=== PATIENT | male | born 1945 | race Caucasian/White ===

== ENCOUNTER 2018-11-02 16:26 | Inpatient (IN) | payer MEDICARE, OTHER ==
[~2018-11-02] VITALS: Ht 170.2 cm; Wt 70.3 kg
--- NOTE | ~2018-11-02 | CON ---
[address] [address] CONSULTATION Name: Leah BARNARD Room: [address] IN .R.#: [id number] Admission: 11/02/18 Attend Phys: Maribell Gordillo MD Discharge: Date of : 49 Report #: [id number] THIS REPORT FOR: //name// CC: Maribell Riddle INPATIENT CONSULTATION CHIEF COMPLAINT: Shortness of breath. HISTORY OF PRESENT ILLNESS: The patient is a 73-year-old male with a history of severe obstructive lung disease. He was evaluated with a routine echocardiogram today, which demonstrated a valvular heart disease. He has known about a murmur for approximately 5-10 years based on other previous physical examinations by his primary doctor. He in fact had a treadmill stress test about 3-4 years ago, which was reportedly normal, not at this institution. He has a past medical history of chronic obstructive pulmonary disease with frequent exacerbations. He has underlying essential hypertension. He has no documented history of heart disease, and he denies congestive heart failure exacerbations, prior [place], stroke or mini strokes. HOME MEDICATIONS: Include loratadine 10 mg daily, lisinopril 20 mg daily, albuterol, Atrovent and vitamins. PAST SURGICAL HISTORY: Prior rotator cuff surgery. SOCIAL HISTORY: He is a tobacco user of 1/2 pack per day, 50-year history. He is not actively smoking. REVIEW OF SYSTEMS: GENERAL: No fevers or chills. PULMONARY: Positive shortness of breath, positive cough. CARDIOVASCULAR: No exertional chest pain or pressure. Positive exertional shortness of breath, no palpitation, no orthopnea, no PND. MUSCULOSKELETAL: No edema. SKIN: No rashes. HEMATOLOGIC: No anemia or bleeding disorder. NEUROLOGIC: Denies headaches, blurry vision, slurred speech or numbness. CARDIOVASCULAR: No palpitations, no chest pain. ENDOCRINE: He is not known to have thyroid disease or diabetes mellitus. FAMILY HISTORY: There is no family history of heart disease or early sudden cardiac . LABORATORY DATA: Sodium is 137, potassium is 4.2, chloride is 99, CO2 is 28, [place] [address] CONSULTATION Name: Leah BARNARD Room: [address] IN [facility]#: [id number] Admission: 11/02/18 Attend Phys: Maribell Gordillo MD Discharge: Date of : 49 Report #: [id number] BUN 16, creatinine is 1.3. Troponin I is 0.06. BNP 315. INR is 1.1. Echocardiogram today reveals EF 65%, normal LV segmental wall motion and [id number] aortic stenosis. There is a mean gradient of 15 mmHg, although this may be slightly underestimated based on the patient's somewhat technical limitations because of his obstructive lung disease. ECG shows a sinus rhythm, nonspecific ST-segment abnormality. IMPRESSION: 1. Aortic valve stenosis. This is in the mild to moderate range and the patient although short of breath is not likely having his symptoms related to his valvular heart disease. He has grossly normal left ventricular systolic function. At this point in time, I would continue with routine clinical followup on an annual basis and likely surveillance echocardiogram in 12 months' time unless he has new progressive shortness of breath that cannot be explained by his significant lung disease. 2. Chronic obstructive pulmonary disease exacerbation. He is doing well on current medical therapy. 3. Hypertension. He has done well on current medical therapy. I would not make any changes. By: [id number] Goldstein MD, FACC /nt
[~2018-11-02 16:26] MED LIST: CLARITIN10 MG PO; DUONEB 2.5-0.5 M3 ML INH; LEVAQUIN 500 M500 M2 PO; LISINOPRIL10 MG PO; NOHOMEMEDICATIONS; PREDNISONE 10 M10 M1 PO; UNICOMPLEX M TA1 TA1 PO; VENTOLIN HFA 1818 GM INH
[2018-11-02 16:33] VITALS: BP 189/84
[2018-11-02 16:57] LABS: HEMOGLOBIN 15.3 gm/dL (14.0-18.0); MCH 31.4 pg (26.0-34.0); MCV 92.3 fL (80.0-100.0); MPV 6.8 fl. (7.2-11.1); NUCLEATED RBCS 0 /100WBC; PLATELET COUNT* 228 thou/uL (150-400); RBC 4.88 mil/uL (4.50-6.00); RDW-CV 13.5 % (10.5-14.5); WBC 7.2 thou/uL (4.0-11.0)
[2018-11-02 17:13] LABS: INR 1.1; PROTIME 10.8 Seconds (9.20-11.50)
[2018-11-02 17:20] LABS: NT-PRO BRAIN NAT PEPTIDE 315 pg/mL (<300); TROPONIN-I LEVEL <0.06 ng/mL (<0.06)
[2018-11-02 17:52] LABS: URINE BILIRUBIN NEGATIVE (Negative); URINE BLOOD NEGATIVE (Negative); URINE CLARITY CLEAR; URINE COLOR YELLOW; URINE GLUCOSE-RANDOM NEGATIVE (Negative); URINE KETONES NEGATIVE (Negative); URINE LEUKOCYTES-REFLEX NEGATIVE (Negative); URINE NITRITE-REFLEX NEGATIVE (Negative); URINE PROTEIN NEGATIVE (Negative); URINE UROBILINOGEN 0.2 E.U./dl (0.2-1.0)
[2018-11-02 18:00] LABS: ALBUMIN 3.8 g/dL (3.4-5.0); CALCIUM 9.3 mg/dL (8.5-10.1); CREATININE 1.3 mg/dL (0.6-1.3); POTASSIUM 4.2 mmol/L (3.5-5.1); TOTAL BILIRUBIN 0.5 mg/dL (<0.1-1.0); TOTAL PROTEIN 7.3 g/dL (6.4-8.2)
[2018-11-02 18:03] LABS: ABSOLUTE EOSINOPHILS 0.8 thou/uL (0.0-0.7); ABSOLUTE LYMPHOCYTES 1.2 thou/uL (0.8-5.3); ABSOLUTE MONOCYTES 0.7 thou/uL (0.0-1.2); ABSOLUTE NEUTROPHILS 4.5 thou/uL (1.6-8.1); PLATELET ESTIMATE ADEQUATE
[2018-11-02 20:24] VITALS: BP 151/82
[2018-11-02 21:00] VITALS: BP 178/79
--- NOTE | 2018-11-03 05:39 | NUR ---
PATIENT ARRIVED ON FLOOR ABOUT 2049 FROM ER. PATIENT ADMISSION HISTORY AND ASSESSMENT WAS COMPLETED CHARTED. IV ANTIOBITCS WERE GIVEN CHARTED. PATIENT IS ON OXYGEN AT 2L PER NASAL CANNULA. LUNGS ARE WHEEZY. PATIENT HAD NO COMPLAINTS OF PAIN. WILL CONTINUE TO MONITOR.
[2018-11-03 07:40] VITALS: BP 158/85
--- NOTE | 2018-11-03 13:08 | EKG ---
[place] [address] ELECTROCARDIOGRAM REPORT Name: Leah BARNARD Room: [address] ADM IN R.#: [id number] Admission: 11/02/18 Attend Phys: Maribell Gordillo MD Discharge: Date of : 49 Report #: [id number] THIS REPORT FOR: //name// [facility] ED Test Date: 2018-11-02 Test Time: 16:39:44 Pat Name: Leah BARNARD Department: Room: [facility] Gender: M Head Waitress: : 1945 Requested By: Yola Mcneal Order Number: [id number] MD: Shmuel Vasquez Measurements Intervals [place] Rate: 89 P: 46 [place]: 166 QRS: -25 QRSD: 95 T: 30 QT: 371 QTc: 452 Interpretive Statements Sinus rhythm Borderline left axis deviation Borderline low voltage, extremity leads Compared to ECG 11/23/2015 09:38:04 Myocardial infarct finding no longer present Electronically Signed On 11-03-2018 13:08:37 CDT by Shmuel Vasquez [email or web address] <ELECTRONICALLY SIGNED> By: Shmuel Vasquez MD, [facility] 11/03/18 1308 1639 [id number] Shmuel Vasquez MD, [facility] /EPI
--- NOTE | 2018-11-03 13:18 | 2DMMODE ---
[place] [address] 2 D/M-MODE ECHOCARDIOGRAM Name: Leah BARNARD Room: [address] IN [facility]#: [id number] Admission: 11/02/18 Attend Phys: Maribell Gordillo, Discharge: Date of : 49 Date of Service: 11/03/18 1318 Report #: [id number] THIS REPORT FOR: //name// APPROVED REPORT Study performed: 11/03/2018 10:11:53 EXAM: Comprehensive 2D, Doppler, and color-flow Echocardiogram Patient Location: In-Patient Room #: [facility] Status: routine BSA: 1.81 HR: 92 bpm BP: 158/85 mmHg Rhythm: NSR Other Information Study Quality: Good Indications COPD Dyspnea 2D Dimensions IVSd: 15.20 (7-11mm) LVOT Diam: 21.57 (18-24mm) LVDd: 48.55 mm PWd: 10.91 (7-11mm) Ascending Ao: 42.77 (22-36mm) LVDs: 24.09 (25-40mm) Aortic Root: 38.91 mm Volumes Left Atrial Volume (Systole) LA ESV Index: 20.50 mL/m2 Aortic Valve AoV Peak Dayron.: 2.61 m/s AO Peak Gr.: 27.19 mmHg LVOT Max P.91 mmHg AO Mean Gr.: 14.75 mmHg LVOT Mean P.10 mmHg LVOT Max V: 0.99 m/s AO V2 VTI: 43.44 cm LVOT Mean V: 0.68 m/s JENNIFER (VTI): 1.72 cm2 LVOT V1 VTI: 20.41 cm Mitral Valve E/A Ratio: 0.71 MV Decel. Time: 143.26 [place] [address] 2 D/M-MODE ECHOCARDIOGRAM Name: Leah BARNARD Room: [address] IN [facility].#: [id number] Admission: 11/02/18 Attend Phys: Maribell Gordillo, Discharge: Date of : 49 Date of Service: 11/03/18 1318 Report #: [id number] MV E Max Dayron.: 0.88 m/s MV PHT: 41.55 ms MVA (PHT): 5.30 cm2 TDI E/Lateral E': 9.78 E/Medial E': 8.00 Medial E' Dayron.: 0.11 m/s Lateral E' Dayron.: 0.09 m/s Pulmonary Valve PV Peak Dayron.: 1.32 m/s PV Peak Gr.: 6.97 mmHg Left Ventricle The left ventricle is normal size. There is normal LV segmental wall motion. Mild septal hypertrophy is present. Left ventricular systolic function is normal. The left ventricular ejection fraction is within the normal range. LVEF is 65%. Grade I - abnormal relaxation pattern. Right Ventricle The right ventricle is normal size. The right ventricular systolic function is normal. Atria Left atrium is mildly dilated. The right atrium size is normal. Aortic Valve Moderate aortic valve sclerosis. Mild aortic regurgitation. Mild to moderte aortic stenosis.Mean gradient 15mmhg Mitral Valve The mitral valve is normal in structure. There is no mitral valve regurgitation noted. No evidence of mitral valve stenosis. Tricuspid Valve The tricuspid valve is normal in structure. There is no tricuspid valve regurgitation noted. Pulmonic Valve The pulmonary valve is normal in structure. There is no pulmonic valvular regurgitation. Great Vessels The aortic root is normal in size. IVC is normal in size and collapses >50% [place] [address] 2 D/M-MODE ECHOCARDIOGRAM Name: Leah BARNARD Room: [address]#: [id number] Admission: 11/02/18 Attend Phys: Maribell Gordillo, Discharge: Date of : 49 Date of Service: 11/03/18 1318 Report #: [id number] Pericardium There is no pericardial effusion. <Conclusion> LVEF is 65%. There is normal LV segmental wall motion. Mild to moderate aortic stenosis. Mild septal hypertrophy is present. Grade I - abnormal relaxation pattern. No evidence of mitral valve stenosis. Mild aortic regurgitation. Left atrium is mildly dilated. <ELECTRONICALLY SIGNED> By: Moo Goldstein MD, FACC 11/03/18 1318 17 17 Moo Goldstein MD, FACC /INF
--- NOTE | 2018-11-03 16:04 | NUR ---
PATIENT UP AD LINSEY TO BATHROOM WITHOUT DIFFICULTY NOTED. IV REMAINS SL, SCHED STEROIDS. ABX TO INFUSE AT HS. NO COMPLAINTS OF PAIN. PULM CONS AND SAW PATIENT THIS AFTERNOON, CT ORDERED AND DONE THIS EVENING, RESULTS PENDING. PATIENT REMAINS ON 2L NC.
[2018-11-03 16:41] VITALS: BP 161/77
--- NOTE | 2018-11-03 16:47 | NUR ---
SW met with pt to complete initial assessment, introduce self, and SW role. Pt alert, oriented, pleasant. Pt lives at home with his . Pt does not have oxygen at home and says he hopes he does not need home oxygen. Pt still has nebulizer he received through [employer] in 2016. SW to continue to follow to assist with safe dc planning.
[2018-11-03 21:00] VITALS: BP 121/79
[2018-11-04 03:23] VITALS: BP 133/71
[2018-11-04 03:58] LABS: HEMATOCRIT 41.6 % (42.0-52.0); MCHC 33.5 g/dL (28.0-37.0); MCV 92.5 fL (80.0-100.0); MPV 6.9 fl. (7.2-11.1); RBC 4.5 mil/uL (4.50-6.00); RDW-CV 13.1 % (10.5-14.5); WBC 9.4 thou/uL (4.0-11.0)
[2018-11-04 04:06] LABS: ALBUMIN 3.3 g/dL (3.4-5.0); CALCIUM 9.2 mg/dL (8.5-10.1); MAGNESIUM 2.1 mg/dL (1.8-2.4); POTASSIUM 4.5 mmol/L (3.5-5.1); TOTAL BILIRUBIN 0.3 mg/dL (<0.1-1.0); TOTAL PROTEIN 6.6 g/dL (6.4-8.2)
--- NOTE | 2018-11-04 05:43 | NUR ---
PATIENT SLEPT MOST OF THE NIGHT. IV REMAINS SALINE LOCKED. IV ANTIBIOTICS WERE GIVEN ORDERED. PATIENT HAS REMAINED SR ON THE MONITOR. BP HAS REMAINED 120'S TO 130'S SBP NO HYDRALIZINE WAS NEEDED. PATIENT REMAINS ON OXYGEN AT 2L PER NC. WILL CONTINUE OT MONITOR.
[2018-11-04 07:32] VITALS: BP 167/76
[2018-11-04 12:01] VITALS: BP 127/73
--- NOTE | 2018-11-04 15:28 | NUR ---
ASSESSMENT COMPLETE. PT ALERT AND ORIENTED X4. VASCULAR CONSULT DONE TODAY. IV ZITHRO AND SOLUMEDROL GIVEN SCHEDULED. PT IS ON 2L PER NC. VSS. PT IS UP AD LINSEY. DENIES PAIN AND N/V. SEE ASSESSMENT AND VITALS FOR OTHER DETAILS. CALL LIGHT WITHIN REACH, WILL CONTINUE PLAN OF CARE
[2018-11-04 16:00] VITALS: BP 147/60
[2018-11-04 20:00] VITALS: BP 165/60
[2018-11-04 20:30] VITALS: BP 141/72
[2018-11-05 00:05] VITALS: BP 153/72
[2018-11-05 04:15] VITALS: BP 130/68
--- NOTE | 2018-11-05 04:42 | NUR ---
PT CARE ASSUMED AT 1930. SAT MAINTAINED IN 2L NC. ALERT AND ORIENTED X4. CALL LIGHT WITHIN REACH AND BED IN LOW POSITION. DENIES PAIN. HOURLY ROUNDING DONE FOR PT SAFETY.
[2018-11-05 08:00] VITALS: BP 147/67
[2018-11-05 16:27] VITALS: BP 150/62
--- NOTE | 2018-11-05 17:07 | NUR ---
PT A&Ox4 THROUGHOUT SHIFT. VITALS STABLE. WEANED OFF OF OXYGEN AND REMAINED A 90% OX RATE. UP AD LINSEY. WALKED HALLS MANY TIMES THROUHGOUT SHIFT. FAMILY IN ROOM MOST OF DAY. DENIED PAIN. IV IN L FA HOLDEN BLANCO. CALL LIGHT WITHIN REACH. WILL CONTINUE TO MONITOR.
[2018-11-05 19:27] VITALS: BP 164/79
--- NOTE | 2018-11-06 04:44 | NUR ---
PT REMAINED A&O X4. MEDS GIVEN ORDERED. PT EDUCATED ON MEDS AND VERBALIZED UNDERSTANDING. PT TOLERATED BREATHING TREATMENT, IV ANTIBIOTIC. NO NAUSEA, VOMITING, OR PAIN. PT SLEEPING THROUGH THE NIGHT. HOURLY ROUNDING COMPLETED. WILL CONTINUE TO MONITOR.
[2018-11-06 08:05] VITALS: BP 157/77
--- NOTE | 2018-11-06 16:09 | NUR ---
PATIENT RESTING IN BED. PATIENT DENIES ANY PAIN. PATIENT HAS BEEN ON ROOM AIR THIS AFTERNOON WITH O2 AT STANDBY. PATIENT HAS WALKED IN HALLS INDEPENDENTLY. PATIENT HAS DENIED ANY TROUBLE BREATHING. PATIENT HAS GOOD APPETITE. PATIENT DENIES ANY NEEDS AT THIS TIME. CALL LIGHT WITHIN REACH. WILL CONTINUE TO MONITOR.
[2018-11-06 16:41] VITALS: BP 134/68
[2018-11-06 20:00] VITALS: BP 154/65
[2018-11-07] VITALS (7 sets, daily range): BP systolic 136–168; BP diastolic 64–77
--- NOTE | 2018-11-07 02:58 | NUR ---
ASSUMED CARE OF PATIENT AT 1900. VSS, AFEBRILE. ORDERS FOUND TO HAVE PATIENT ON TELE, TELE MONITOR PLACED BACK ON PATIENT. EDUCATED TO WHY IT WAS ON. DENIES PAIN. IS SOA WITH WITH ACTIVITY, ON ROOM AIR. PROGRESSING TOWARDS POC GOALS.
[2018-11-07 11:10] LABS: ADENOVIRUS Negative (Negative); INFLUENZA A Negative (Negative); INFLUENZA B Negative (Negative); METAPNEUMOVIRUS Negative (Negative); PARAINFLUENZA 1 Negative (Negative); PARAINFLUENZA 2 Negative (Negative); PARAINFLUENZA 3 Negative (Negative); RHINOVIRUS Negative (Negative); RSV A Negative (Negative); RSV B Negative (Negative)
[2018-11-07] MEDS ORDERED: NORVASC10 MG PO (13:34)
[2018-11-07] MEDS ORDERED: PREDNISONE 10 M10 MG PO (13:36)
[2018-11-07] MEDS ORDERED: PROTONIX40 M1 PO (13:41)
--- NOTE | 2018-11-07 14:03 | NUR ---
PATIENT IS ALERT AND ORIENTED TODAY VERY PLEASANT. UP AD LINSEY IN ROOM, VITAL SIGNS STABLE ON ROOM AIR. NO COMPLAINTS OF PAIN TODAY. PATIENT IS BEING DISCHARGRED TO HOME WITH SPOUSE. DISCHARGE INSTRUCTIONS AND PRESCRIPTIOMS GIVEN AND QUESTIONS ANSWERED FOR PATIENT AND FAMILY. LEFT VIA WHEELCHAIR TO HOME WITH .
--- NOTE | 2018-11-07 14:13 | CON ---
[address] [address] CONSULTATION Name: Leah BARNARD Room: [address] IN M.R.#: [id number] Admission: 11/02/18 Attend Phys: Maribell Gordillo MD Discharge: 11/07/18 Date of : 49 Report #: [id number] THIS REPORT FOR: //name// CC: Maribell Riddle DATE OF SERVICE: 11/03/2018 Consult has been requested by Dr. Gordillo. INDICATION FOR CONSULTATION: Shortness of breath. HISTORY OF PRESENT ILLNESS: This is a 73-year-old gentleman. Past medical history does include a history of COPD. The patient follows with Dr. Zuluaga in the office. He is not on supplemental oxygen and not on CPAP or BiPAP at home. Over the last several months, he has had difficulty in controlling his COPD. He has received multiple antibiotics. He has also received at least 2 courses of prednisone. The patient, however, continued to remain short of breath and therefore came to the Emergency Room yesterday. His O2 saturation was 88% on room air on arrival. Note that he previously was not on oxygen. He does have a cough. There is not much sputum. There is no chest pain. He does not have upper respiratory complaints. There is no swelling of lower extremities or calf pain. He does have disturbed sleep at night as well as sleepiness during the day. These complaints are at baseline. I asked him 12 questions for review of systems. The patient answered to the negative for all other questions for review of systems except as mentioned above. PAST MEDICAL HISTORY: COPD, not on CPAP, BiPAP or oxygen long-term. Has had influenza in August 2018. He just had an echocardiogram, which does show moderate aortic stenosis, right rotator cuff surgery, allergic rhinitis. CURRENT MEDICATIONS: List in [employer] reviewed. HOME MEDICATIONS: List also in [employer] reviewed. ALLERGIES: No known drug allergies. SOCIAL HISTORY: Smoker, half to 1 pack a day for 50 years, discontinued 3 or 4 years ago. No known history of heavy alcohol use or illegal drug use. PHYSICAL EXAMINATION: GENERAL: He is alert, awake and oriented. VITAL SIGNS: In the record. These are reviewed, pulse 108, blood pressure 158/85, he is saturating 93%. He is on 2 liters nasal cannula. His respiratory rate is 18. He is afebrile with a temperature of 36.5. [place] [address] CONSULTATION Name: Leah BARNARD Room: [address]#: [id number] Admission: 11/02/18 Attend Phys: Maribell Gordillo MD Discharge: 11/07/18 Date of : 49 Report #: [id number] HEENT: There is no throat erythema. He has a narrow airway around Mallampati 3. NECK: Does not show raised JVP. CHEST: Breath sounds are bilaterally equal, decreased, expirations prolonged. There are expiratory wheezes bilaterally. HEART: Regular. There is a soft systolic murmur. ABDOMEN: Soft and nontender. EXTREMITIES: Lower extremities, no edema, no calf tenderness. He has some varicose veins. LABORATORY DATA: The patient's lab work including CBC as well as chemistries are in [facility]. These are reviewed. Creatinine is mildly elevated to 1.3. Note that his baseline creatinine was 0.9. D-dimer was 0.44. Viral respiratory panel is pending at this time. The patient's chest x-ray from yesterday as well as today are reviewed. There are vague radiopaque densities noted at the left lung base. There are also chronic changes noted. He has a prominent aorta. ASSESSMENT AND PLAN: 1. Acute respiratory insufficiency. Primarily, this appears to be secondary to bronchospasm. Note that there are vague radiopaque densities at the left lung base and therefore a pulmonary infiltrate in this region does need to be ruled out as well. Also, the patient does have aortic stenosis. 2. Chronic obstructive pulmonary disease exacerbation. I feel the primary therapy at this time is with Solu-Medrol. The patient is already ordered Solu-Medrol. I will continue as currently prescribed. We will also continue with nebulized bronchodilators as currently prescribed. My suspicion of thromboembolism is low considering D-dimer is not elevated. For now, we will continue with broad-spectrum antibiotics as currently prescribed as well. I do want to assess further the vague density seen at the left lung base on the chest x-ray by doing a CT chest without contrast. 3. Aortic stenosis. Recommend obtaining a Cardiology consult. 4. Hypersomnia/disturbed sleep. I feel that his history is consistent with obstructive sleep apnea. I will recommend obtaining an outpatient sleep study later. 5. Suspected silent gastroesophageal reflux disease. I will go ahead and switch his Pepcid over to Protonix. 6. Deep venous thrombosis prophylaxis, Lovenox. Thanks for this consultation. <ELECTRONICALLY SIGNED> By: Meir Cummings MD 11/07/18 1413 1417 [id number] Jain MD /nt
== END 2018-11-07 14:07 | disposition home or self-care (01) | DRG 189 ==
LOC: M.ERS 16:26 → M.3W 18:05 → M.TBA-ER 18:05 → M.3W 20:43
PROVIDERS: Nurse Practitioner Family; ADMIT Internal Medicine
DX: J96.01 Acute respiratory failure with hypoxia (principal); J44.1 Chronic obstructive pulmonary disease with (acute) exacerbation; I71.2 Thoracic aortic aneurysm, without rupture; G47.10 Hypersomnia, unspecified; R91.1 Solitary pulmonary nodule; I10 Essential (primary) hypertension; I35.0 Nonrheumatic aortic (valve) stenosis; I71.4 Abdominal aortic aneurysm, without rupture; Z79.2 Long term (current) use of antibiotics; Z79.899 Other long term (current) drug therapy; Z79.51 Long term (current) use of inhaled steroids